=== PATIENT | male | born 2000 | race Caucasian/White ===

== ENCOUNTER 2020-10-06 15:31 | Emergency (ER) | payer OTHER ==
[~2020-10-06] VITALS: Ht 193 cm; Wt 120.2 kg
[2020-10-06] MEDS ORDERED: TEGRETOL XR100 MG PO (15:38)
[2020-10-06 16:07] VITALS: BP 155/91
--- NOTE | 2020-10-07 09:19 | EKG ---
[place] [address] ELECTROCARDIOGRAM REPORT Name: GARIMA QUIROS [id number] Admission: 10/06/20 Attend Phys: Discharge: 10/06/20 Date of : [birth year] Date of Service: 10/06/20 1540 Report #: [id number] THIS REPORT FOR: //name// [facility] ED Test Date: 2020-10-06 Test Time: 15:40:26 Pat Name: GARIMA QUIROS Department: Room: Gender: Producer: [facility] : 2000 Requested By: Franck Worley Order Number: [id number] MD: Matt Sutton Measurements Intervals [place] Rate: 74 P: 68 NC: 164 QRS: 70 QRSD: 94 T: 48 QT: 371 QTc: 412 Interpretive Statements Sinus rhythm No previous ECG available for comparison Electronically Signed On 10-07-2020 9:19:09 [employer] by Matt Sutton [email or web address] <ELECTRONICALLY SIGNED> By: Matt Sutton MD, [facility] 10/07/20 0919 1540 1540 Matt Sutton MD, FACC /EPI
== END 2020-10-06 16:07 | disposition home or self-care (01) ==
LOC: M.ERS 15:31
DX: R07.9 Chest pain, unspecified (principal); Z79.899 Other long term (current) drug therapy